=== PATIENT | male | born 1960 | race Caucasian/White ===

== ENCOUNTER 2023-12-05 20:07 | Emergency (ER) | payer MEDICAID, SELFPAY ==
--- NOTE | 2023-12-05 20:12 | CTR_ITS ---
PROCEDURE INFORMATION: Exam: CT Head Without Contrast Exam date and time: 12/05/2023 8:09 PM Age: 63 years old Clinical indication: Stroke-like symptoms; RT upper extremity and RT lower extremity weakness; Additional info: C/O RT upper and lower extremity numbness/weakness. Last known well time of 1630. History of CVA. TECHNIQUE: Imaging protocol: Computed tomography of the head without contrast. Radiation optimization: All CT scans at this facility use at least one of these dose optimization techniques: automated exposure control; mA and/or kV adjustment per patient size (includes targeted exams where dose is matched to clinical indication); or iterative reconstruction. Other technique: STROKE PROTOCOL was implemented. COMPARISON: No relevant prior studies available. RADIATION DOSE METRICS: Total DLP (mGy-cm): 1104.4 FINDINGS: Brain: Age appropriate atrophy and small vessel ischemic change. No evidence of intracranial hemorrhage, mass effect, midline shift or extra-axial fluid collections. Midline structures are normal. Myrick-white matter differentiation is normal. Cerebral ventricles: No ventriculomegaly. Paranasal sinuses: Visualized sinuses are unremarkable. No fluid levels. Mastoid air cells: Visualized mastoid air cells are well aerated. Bones/joints: Unremarkable. No acute fracture. Soft tissues: Unremarkable. Vasculature: Carotid atherosclerotic calcification. CT/CT head wo con* [id number] IMPRESSION: No acute intracranial abnormality. ASSESSMENT: ASPECTS ([place] Stroke Program Early CT Score) is 10.
--- NOTE | 2023-12-05 20:12 | ECG_ITS ---
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 Measurements Intervals [place] Rate: 86 P: 58 ID: [id number] QRS: 52 QRSD: 114 T: 50 QT: 332 QTc: 399 Interpretive Statements SINUS RHYTHM MODERATE INTRAVENTRICULAR CONDUCTION DELAY [110+ ms QRS DURATION] No previous ECG available for comparison Electronically Signed On 12-06-2023 6:05:59 INSPECTOR by Miguel Richardson M.D. [id number]
[2023-12-05 20:22] VITALS: BP 145/101; PULSE 114; RESP 16; O2SAT 95
[2023-12-05 20:40] LABS: Glucose Point of Care 111 mg/dL (70-110)
[2023-12-05 20:46] LABS: Basophils # 0.1 10^3/uL (0.0-0.1); Basophils % 0.9 %; Eosinophils # 0.5 10^3/uL (0.0-0.8); Eosinophils % 7.7 %; Hematocrit 31.3 % (37-53); Lymphocytes # 1.1 10^3/uL (0.8-4.8); Lymphocytes % 16.4 %; Mean Corpuscular Hemoglobin 23.4 pg (27-33); Mean Corpuscular Volume 77.9 fl (82-101); Mean Platelet Volume 9.3 fL (7.4-10.4); Monocytes # 0.5 10^3/uL (0.2-0.9); Monocytes % 8.2 %; Neutrophils % 66.5 %; Nucleated Red Blood Cells % 0 %; Platelet Count 256 10^3/cmm (157-399); Red Blood Count 4.02 10^6/uL (3.85-5.65); White Blood Count 6.47 10^3/uL (3.29-11.43)
[2023-12-05 20:51] LABS: INR 0.96 (0.8-1.2)
[2023-12-05 20:52] LABS: Partial Thromboplastin Time 41.9 SECONDS (23.9-36.7)
[2023-12-05 20:58] LABS: Alanine Aminotransferase 10 U/L (0-41); Albumin Level 4.4 g/dL (3.5-5.2); Alkaline Phosphatase 48 U/L (40-130); Anion Gap 16.1 (5-19); Aspartate Amino Transferase 15 U/L (0-40); Blood Urea Nitrogen 26 mg/dL (8-23); Calcium 10.1 mg/dL (8.5-10.5); Carbon Dioxide 23 mmol/L (22-29); Chloride 100 mmol/L (98-107); Globulin 2.8 g/dL (1.3-4.6); Glucose 93 mg/dL (65-115); Osmolality Calculated 284 mOsm/kg (285-295); Potassium 4.1 mmol/L (3.5-5.1); Sodium 135 mmol/L (136-145); Total Bilirubin 0.2 mg/dL (0.15-1.2); Total Protein 7.2 g/dL (6.6-8.7)
[2023-12-05 21:08] LABS: Troponin(5th) Baseline 37 ng/L (0-15)
[2023-12-05 21:08] LABS: Bacteria Urine TRACE /hpf; Bilirubin Urine Neg (Negative); Blood Urine Neg (Negative); Glucose Urine UA Norm (Normal); Ketones Urine Negative (Negative); Leukocyte Esterase Urine Negative (Negative); Mucus Urine TRACE /hpf; Nitrate Urine Negative (Negative); Protein Urine Neg (Negative); RBC Urine 0-4 /hpf (0-2); Squamous Epithelial Cell Urine 0-4 /hpf (0-5); Urine Appearance Clear (CLEAR); Urine Color Yellow (Yellow); Urobilinogen Urine Norm (Negative); WBC Urine 0-4 /hpf (0-5); pH Urine 6 (5-7)
--- NOTE | 2023-12-05 21:24 | W.ED.NEUROSD ---
HPI - Neuro Symptoms/Deficit General: Chief Complaint: Neuro Symptoms/Deficit Stated Complaint: R NUMBNESS Time Seen by Provider: 12/05/23 20:12 History of Present Illness: 63-year-old male presents to the emergency department via EMS personnel stating that he felt that the right side of his body was slightly more numb than it normally is. He states it has been numb for a very long time as he has had 2 strokes in the past. He states that when he got up to walk today he felt like his leg was more numb but states he was not having any more difficulty than he normally does while walking. He denies headache, nausea vomiting dizziness or lightheaded feeling. He states he does smoke every day and also drinks occasionally. Review of Systems General: Reports: 10 or more systems reviewed and unremarkable except in HPI and below Neuro: Reports: numbness in extremities and weakness in extremities Physical Exam Narrative: EXAM NARRATIVE: Constitutional: the patient appears well nourished and with normal development. Vital signs reviewed as documented. HENMT: Normocephalic, atraumatic. External ears normal appearance without drainage. Nose without drainage, normal appearance. Mucus membranes moist. Neck is supple, No jugular venous distension, trachea is midline, no appreciable carotid bruits. No lymphadenopathy. No meningeal signs. Flexion, extension and lateral rotation is without pain. Eyes: Pupils are equal, round, reactive to light and accommodation. No scleral icterus. Extra-ocular movement are intact. Thorax is symmetrical and with equal rise and fall with respirations. Resp: Lungs are clear to auscultation. No wheezes, rales, crackles or ronchi at present. Cardio: Regular rate and rhythm. Positive S1, S2. No appreciable murmurs, rubs or gallops. GI: Abdominal exam reveals normal bowel sounds to all quadrants. No organomegaly. No obvious palpable masses noted. No hepatomegally appreciated. Soft, non-tender to palpation. Extremity: Extremities are non-edematous and both femoral and pedal pulses are 2+ and equal bilaterally. Moves all extremities well, sensation in all extremities. Neuro: Alert and oriented x4, person, place, time and situation. Cranial nerves II through XII are grossly intact, there is no focal neurological deficits that I can appreciate at present. Motor strength in the upper and lower extremities are equal and bilateral 5/5. Psych: Cooperative, calm, normal thought process, appropriate judgment. Skin: No lesions, rashes. No gross abnormalities noted. Back: Symmetrical, no obvious deformity, No CVA tenderness Course Vital Signs: Vital signs: Vital Signs Pulse Rate 79 12/05/23 21:39 Respiratory Rate 14 12/05/23 21:39 Blood Pressure 105/78 12/05/23 21:39 Pulse Oximetry 97 12/05/23 21:39 MDM - Neuro Symptoms/Deficit Medical Decision Making 63-year-old male presents stating that he has increased numbness to his entire right side. He states that is always numb but today it felt more numb. We did stroke alert the patient and will obtain a CT scan of his head as well as laboratory evaluation to include a CBC, CMP PT PTT INR serial cardiac enzymes and EKGs. I did consult neurology and spoke with Dr. Green regarding my negative findings on the patient's neuroexam I have listed his NIH score below. NIH Stroke Scale/Score (NIHSS) on 12/05/2023 RESULT SUMMARY: 0 points NIH Stroke Scale INPUTS: 1A: Level of consciousness ?> 0 = Alert; keenly responsive 1B: Ask month and age ?> 0 = Both questions right 1C: 'Blink eyes' & 'squeeze hands' ?> 0 = Performs both tasks 2: Horizontal extraocular movements ?> 0 = Normal 3: Visual arciniega ?> 0 = No visual loss 4: Facial palsy ?> 0 = Normal symmetry 5A: Left arm motor drift ?> 0 = No drift for 10 seconds 5B: Right arm motor drift ?> 0 = No drift for 10 seconds 6A: Left leg motor drift ?> 0 = No drift for 5 seconds 6B: Right leg motor drift ?> 0 = No drift for 5 seconds 7: Limb Ataxia ?> 0 = No ataxia 8: Sensation ?> 0 = Normal; no sensory loss 9: Language/aphasia ?> 0 = Normal; no aphasia 10: Dysarthria ?> 0 = Normal 11: Extinction/inattention ?> 0 = No abnormality Medical Records I reviewed the patient's medical records. Lab Data I reviewed the patient's lab results. 12/05/23 20:30 12/05/23 20:[address] 12/05/23 20:12 IMPRESSION: No acute intracranial abnormality. ASSESSMENT: ASPECTS ([place] Stroke Program Early CT Score) is 10. Laboratory Results WBC 6.47 10^3/uL (3.29-11.43) 12/05/23 20:30 RBC 4.02 10^6/uL (3.85-5.65) 12/05/23 20:30 Hgb 9.40 g/dL (11.27-16.99) L 12/05/23 20:30 Hct 31.3 % (37-53) L 12/05/23 20:30 MCV 77.9 fl (82-101) L 12/05/23 20:30 MCH 23.4 pg (27-33) L 12/05/23 20:30 MCHC 30.0 g/dL (30-55) 12/05/23 20: RDW 17.0 % (12.1-15.1) H 12/05/23 20:30 Plt Count 256 10^3/cmm (157-399) 12/05/23 20:30 MPV 9.3 fL (7.4-10.4) 12/05/23 20:30 Neut % (Auto) 66.5 % 12/05/23 20:30 Lymph % (Auto) 16.4 % 12/05/23 20:30 [place] % (Auto) 8.2 % 12/05/23 20:30 Eos % (Auto) 7.7 % 12/05/23 20:30 Baso % (Auto) 0.9 % 12/05/23 20:30 Neut # (Auto) 4.30 10^3/uL (1.8-7.7) 12/05/23 20:30 Lymph # (Auto) 1.1 10^3/uL (0.8-4.8) 12/05/23 20:30 Campbell # (Auto) 0.5 10^3/uL (0.2-0.9) 12/05/23 20:30 Eos # (Auto) 0.5 10^3/uL (0.0-0.8) 12/05/23 20:30 Baso # (Auto) 0.1 10^3/uL (0.0-0.1) 12/05/23 20:30 Nucleated RBC % (auto) 0 % 12/05/23 20:30 Nucleated RBCs # 0.0 /100WBC 12/05/23 20: PT 13.10 SECONDS (12.1-14.9) 12/05/23 20:30 INR 0.96 (0.8-1.2) 12/05/23 20:30 APTT 41.9 SECONDS (23.9-36.7) H 12/05/23 20:30 Sodium 135 mmol/L (136-145) L 12/05/23 20:30 Potassium 4.1 mmol/L (3.5-5.1) 12/05/23 20:30 Chloride 100 mmol/L (98-107) 12/05/23 20:30 Carbon Dioxide 23 mmol/L (22-29) 12/05/23 20:30 Anion Gap 16.1 (5-19) 12/05/23 20:30 BUN 26 mg/dL (8-23) H 12/05/23 20:30 Creatinine 1.6 mg/dL (0.7-1.2) H 12/05/23 20:30 GFR Calculation 44.0 mL/min (90-130) L 12/05/23 20:30 Glucose 93 mg/dL (65-115) 12/05/23 20:30 POC Glucose 111 mg/dL (70-110) H 12/05/23 20:37 Calculated Osmolality 284 mOsm/kg (285-295) L 12/05/23 20:30 Calcium 10.1 mg/dL (8.5-10.5) 12/05/23 20:30 Total Bilirubin 0.2 mg/dL (0.15-1.2) 12/05/23 20:30 AST 15 U/L (0-40) 12/05/23 20:30 ALT 10 U/L (0-41) 12/05/23 20:30 Alkaline Phosphatase 48 U/L (40-130) 12/05/23 20:30 Troponin T Baseline 37 ng/L (0-15) H 12/05/23 20:30 Total Protein 7.2 g/dL (6.6-8.7) 12/05/23 20:30 Albumin 4.4 g/dL (3.5-5.2) 12/05/23 20:30 Globulin 2.8 g/dL (1.3-4.6) 12/05/23 20:30 Urine Color Yellow (Yellow) 12/05/23 20:34 Urine Appearance Clear (CLEAR) 12/05/23 20:34 Urine pH 6 (5-7) 12/05/23 20:34 Ur Specific [place] 1.010 (1.005-1.030) 12/05/23 20:34 Urine Protein Neg (Negative) 12/05/23 20:34 Urine Glucose (UA) Norm (Normal) 12/05/23 20:34 Urine Ketones Negative (Negative) 12/05/23 20:34 Urine Blood Neg (Negative) 12/05/23 20:34 Urine Nitrate Negative (Negative) 12/05/23 20:34 Urine Bilirubin Neg (Negative) 12/05/23 20:34 Urine Urobilinogen Norm mg/dL (Negative) 12/05/23 20:34 Ur Leukocyte Esterase Negative (Negative) 12/05/23 20:34 Urine RBC 0-4 /hpf (0-2) H 12/05/23 20:34 Urine WBC 0-4 /hpf (0-5) H 12/05/23 20:34 Ur Squamous Epith Cells 0-4 /hpf (0-5) H 12/05/23 20:34 Amorphous Sediment Not Reportable 12/05/23 20:34 Urine Bacteria Trace /hpf (NONE) 12/05/23 20:34 Urine Mucus Trace /hpf 12/05/23 20:34 All radiology interpretation(s) finalized by discharge EKG Data EKG 1: Interpretation: Twelve-lead EKG obtained at 2028 and reviewed at 2029 demonstrates sinus rhythm with a ventricular rate of 86 bpm, RI interval 147, QRS duration 114, QT 332, QTc [address] elevation or depression at present to demonstrate acute ischemia or infarction. EKG 2: Interpretation: Twelve-lead EKG obtained at 2200 and reviewed at 2202 demonstrates sinus rhythm with a ventricular rate of 81 bpm RI interval 157 QRS duration 110 QT 342 QTc [address] elevation or depression to demonstrate acute ischemia or infarction at present. Discharge Plan Discharge Patient Disposition: Home Clinical Impression: Arm paresthesia, right, Right leg paresthesias Peripheral neuropathy Qualifiers: Peripheral neuropathy type: polyneuropathy, unspecified Qualified Code(s): G62.9 - Polyneuropathy, unspecified Condition: Stable Discharge Orders: Discharge ED (Routine); Ordered 12/05/23 Ordered By: Andrew Erickson Discharge Diet: Low Salt Discharge Activity: Resume usual activity Patient Instructions: Opioid Safety, Pain Management Activity Restrictions/Additional Instructions: Activity Restrictions/Additional Instructions: Thank you [facility] healthcare needs today. Please realize that you were seen in the Emergency Department and that we are providing you with an emergency medical screening exam and this may not be a complete and all inclusive of all the testing and or medical work-up that you may need to determine your ailment or severity of your illness. It is very important that you follow-up as instructed with your Primary care provider or Specialist for additional evaluation and to discuss your medical treatment plan. You may return to the Emergency Department should you have concerns or if your condition changes or worsens in any way. Coding Level of Care Code ED Television Equipment Operator for Gaye Desai
[2023-12-05 21:39] VITALS: BP 105/78; PULSE 79; RESP 14; O2SAT 97
--- NOTE | 2023-12-05 22:12 | ECG_ITS ---
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 Measurements Intervals [place] Rate: 81 P: 59 AK: 157 QRS: 39 QRSD: 110 T: 49 QT: 342 QTc: 399 Interpretive Statements SINUS RHYTHM Compared to ECG 12/05/2023 20:29:20 Intraventricular conduction delay no longer present Electronically Signed On 12-06-2023 6:07:52 PLAY THERAPIST by Miguel Richardson M.D. [id number]
[2023-12-05 22:46] LABS: Troponin 5 2HR 34.27 ng/L (0-15)
[2023-12-05 22:50] LABS: Troponin 5 2HR Delta -2.73 ABS# (0-10)
== END 2023-12-05 22:49 | disposition home or self-care (01) ==
PROVIDERS: Emergency Provider Internal Medicine
DX: G62.9 Polyneuropathy, unspecified (principal); R20.2 Paresthesia of skin
CPT/HCPCS: 36415; 36416; 70450; 80053; 81001; 82962; 84484; 85025; 85610; 85730; 93005; 99285

== ENCOUNTER → 2024-02-09 10:20 | Outpatient (BNVA) | payer MEDICAID, SELFPAY | PROVIDERS: PCP Family Medicine; Visit Provider Thoracic Surgery (Cardiothoracic Vascular Surgery) | DX: I65.22 Occlusion and stenosis of left carotid artery (principal); F17.210 Nicotine dependence, cigarettes, uncomplicated | CPT/HCPCS: 99214 ==

== ENCOUNTER 2024-03-05 10:03 | Outpatient (CLI) | payer MEDICAID, SELFPAY ==
--- NOTE | 2024-03-05 10:00 | CT_ITS ---
WS: [id number] CT ANGIOGRAM CAROTID ARTERIES HISTORY: bilat carotid stenosis TECHNIQUE: CT angiogram is performed of the carotid arteries. During arterial injection imaging is ob tained from the skull base to the aortic arch in 1.0 mm imaging. Coronal and sagittal reformats are s ubmitted, MIP imaging also reviewed. Additional multiplanar reformats of the carotid arteries are sub mitted. NASCET criteria utilized. All CT scans at [facility] use at least one of these dose o ptimization techniques: automated exposure control; mA and/or kV adjustment per patient size (include s targeted exams where dose is matched to clinical indication); or iterative reconstruction. CONTRAST: Omnipaque 350; 50 mL IV. DLP: 616.43 mGy.cm COMPARISON: None available. Right carotid: Common carotid artery: Arises normally from the innominate artery. Increasing calcified plaque at the bifurcation. Internal carotid artery: Calcified plaque with a high-grade stenosis involving the proximal RIGHT ICA . Diameter is less than 2 mm. Stenosis is calculated at approximately 48%. The ICA stenosis visually appears closer to 70 to 80%. Distally carotid artery is patent. Increasing plaque through the petrous portion of the carotid artery. External carotid artery: Patent. Left carotid: Common carotid artery: Arises normally from the aortic arch. No significant stenosis. Internal carotid artery: Circumferential calcified plaque at the bifurcation. Complete occlusion of t he proximal LEFT ICA. External carotid artery: Patent. Right vertebral artery: Patent. Left vertebral artery: The very proximal LEFT vertebral artery does not opacify with contrast. There is a dense calcified plaque near the origin of the vertebral artery. Subclavian arteries: Scattered plaque involving the LEFT subclavian artery. No stenosis of any signif icance. There is very dense heavy calcified plaque involving the origin of the RIGHT subclavian arter y. No contrast is noted through a small segment. The RIGHT vertebral artery communicates with the sub clavian artery just distal to the plaque. Upper thorax: Severe centrilobular and paraseptal emphysema at the lung apices. Thyroid gland: Normal. Osseous structures: The spaces are narrowed. Moderate cervical spondylosis. Skull base: Negative. IMPRESSION: 1. 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 2. High-grade stenosis proximal RIGHT cervical carotid ICA. Stenosis estimated at 70 to 80%. 3. Dense calcified plaque involving the proximal RIGHT subclavian artery. No contrast column is note d through the area of plaque. Suspect high-grade if not complete occlusion. RIGHT vertebral artery co mmunicates with the RIGHT subclavian artery just distal to the calcified plaque. Dedicated CT angiogr am of the subclavian arteries performed on the same day. Please refer to that report. 4. Suspect occluded proximal LEFT vertebral artery. No contrast is noted in the proximal LEFT verteb ral artery. There is contrast noted just distal to its origin from the subclavian artery which may be retrograde flow.
--- NOTE | 2024-03-05 11:00 | CT_ITS ---
WS: [id number] CTA THORACIC AORTA WITH CONTRAST. HISTORY: subclavian stenosis TECHNIQUE: CT imaging of the thorax is performed with and without contrast. After noncontrast imaging is performed, CT angiogram is performed during injection of Omnipaque 350; 50 mL IV.. Sagittal and c oronal reconstructions, sagittal and coronal MIP imaging is submitted. All CT scans at [facility] use at least one of these dose optimization techniques: automated exposure control; mA and/or kV adjustment per patient size (includes targeted exams where dose is matched to clinical indication); or iterative reconstruction. DLP: 616.43 mGy.cm COMPARISON: None available. Thoracic aorta is normal size. No dissection. No aneurysm. Mild intimal thickening and a few areas of calcified plaque. RIGHT innominate artery contains calcified plaque. There is a very high-grade plaq ue burden involving the origin of the RIGHT subclavian artery. There may be a string sign present or complete occlusion. RIGHT vertebral artery enters the subclavian artery distal to the plaque. Mild atherosclerotic plaque LEFT subclavian and LEFT vertebral artery at the origin. LEFT vertebral a rtery is not opacified proximally. There is heavy calcified plaque at the origin from the subclavian artery. Centrilobular and paraseptal emphysema. No mass. No pneumonia. Mild LEFT heart enlargement. No perica rdial or pleural effusions. No adenopathy. 10 mm LEFT adrenal nodule. With no history of malignancy statistically this is benign. Mild atheroscl erosis origin of the celiac axis. IMPRESSION: 1. Complete occlusion versus near complete occlusion origin of the RIGHT subclavian artery. Dense ca lcified plaque. Reconstitution of flow via the RIGHT vertebral artery. 2. No contrast noted filling the proximal LEFT vertebral artery. More distal flow may be due to retr ograde filling. 3. Centrilobular and paraseptal emphysema. 4. Mild atherosclerosis thoracic aorta with no aneurysm. No dissection.
[2024-03-05 11:32] LABS: Blood Urea Nitrogen 23 mg/dL (8-23); Glomerular Filtration Rate 51.4 mL/min (90-130)
[2024-03-05] MEDS: iohexol 350 mg/mL 500 mL Btl (per mL) IV (11:33)
== END 2024-03-05 10:04 | disposition home or self-care (01) ==
LOC: RAD 10:03
PROVIDERS: PCP Family Medicine; Visit Provider Thoracic Surgery (Cardiothoracic Vascular Surgery)
DX: I65.23 Occlusion and stenosis of bilateral carotid arteries (principal); I77.1 Stricture of artery; J43.2 Centrilobular emphysema; J43.8 Other emphysema; I70.0 Atherosclerosis of aorta
CPT/HCPCS: 70498; 71275; 82565; 84520; Q9967